=== PATIENT | female | born 1995 | race Caucasian/White ===

== ENCOUNTER 2018-05-29 05:47 | Inpatient (IN) | payer OTHER ==
[~2018-05-29] VITALS: Ht 170.2 cm; Wt 87.2 kg
[2018-05-29] MEDS ORDERED: OXYTOCIN 10 UNITS/ML VIAL IM ONE (05:48)
[2018-05-29] MEDS ORDERED: 0.9% SODIUM CHLORIDE 10 ML VIAL IVP ONE (05:48)
[2018-05-29] MEDS ORDERED: EPHEDrine SULFATE 50 MG/ML VIAL IM ONE (05:48)
[2018-05-29] MEDS ORDERED: RINGERS SOLUTION,LACTATED 1,000 ML IV ONE (05:48)
[2018-05-29] MEDS ORDERED: METOCLOPRAMIDE HCL 5 MG/ML 2 ML VIAL IVP ONE (06:00)
[2018-05-29] MEDS ORDERED: CITRIC ACID/SODIUM CITRATE 30 ML SOLUTION UDCUP PO ONE (06:00)
[2018-05-29] MEDS ORDERED: PREN1TAB80 PO (06:22)
[2018-05-29 06:23] LABS: BASOPHILS % (AUTO) 0.5 % (0.0-2.0); EOSINOPHILS % (AUTO) 0.5 % (1.0-6.0); HEMATOCRIT 40.1 % (36-46); HEMOGLOBIN 13.4 g/dL (12.0-16.0); LYMPHOCYTES % (AUTO) 15.8 % (22.0-44.0); MEAN CORPUSCULAR HGB CONC 33.3 G/dL (31.0-37.0); MEAN CORPUSCULAR VOLUME 96 fL (80-100); MONOCYTES # (AUTO) 0.8 K/uL (0.1-1.0); NEUTROPHILS # (AUTO) 9.9 K/uL (1.8-7.7); NEUTROPHILS % (AUTO) 77.2 % (40.0-70.0); PLATELET COUNT (AUTO) 191 K/uL (150-450); RED BLOOD CELL COUNT(AUTO) 4.18 MIL/uL (4.00-5.20); RED CELL DISTRIBUTION WIDTH 14.2 % (11.5-14.5)
[2018-05-29 06:31] VITALS: BP 115/71
[2018-05-29] MEDS ORDERED: FentaNYL CITRATE-PF 100 MCG/2 ML VIAL ONE (07:30)
[2018-05-29] MEDS ORDERED: BUPIVACAINE HCL/DEX-WATER/PF 0.75% 2 ML AMP ONE ×2 (07:30→07:32)
[2018-05-29] MEDS ORDERED: MORPHINE SULFATE/PF 0.5 MG/ML 10 ML AMP ONE (07:30)
[2018-05-29] MEDS ORDERED: ACETAMINOPHEN 1000 MG/ISO-OSM 100 ML IV ONE (07:30)
[2018-05-29] MEDS ORDERED: NALBUPHINE HCL 10 MG/ML VIAL IVP PRN ×3 (08:30)
[2018-05-29] MEDS ORDERED: DiphenhydrAMINE HCL 50 MG/ML VIAL IVP PRN ×2 (08:30)
[2018-05-29] MEDS ORDERED: ONDANSETRON HCL 4 MG/2 ML VIAL IVP PRN ×2 (08:30)
[2018-05-29] MEDS ORDERED: MORPHINE SULFATE 10 MG/ML SYRINGE IVP PRN (08:30)
[2018-05-29] MEDS ORDERED: FentaNYL CITRATE-PF 100 MCG/2 ML VIAL IVP PRN (08:30)
[2018-05-29] MEDS ORDERED: DEXAMETHASONE SOD PHOS 4 MG/ML VIAL IVP PRN (08:30)
[2018-05-29] MEDS ORDERED: NALOXONE HCL 0.4 MG/ML VIAL IVP PRN (08:30)
[2018-05-29] MEDS ORDERED: LANOLIN 7 GM OINTMENT TP PRN (09:00)
[2018-05-29] MEDS ORDERED: ACETAMINOPHEN/CODEINE 300-30 MG TABLET PO PRN ×2 (09:00)
[2018-05-29] MEDS ORDERED: METHYLERGONOVINE MALEATE 0.2 MG/ML VIAL ONE (09:56)
[2018-05-29] MEDS ORDERED: ONDANSETRON HCL 4 MG/2 ML VIAL ONE (10:13)
[2018-05-29] MEDS: DEXTROSE 5%-0.45% SODIUM CHL 1,000 ML IV SCH ×4 (10:45→23:41)
[2018-05-29] MEDS: ACETAMINOPHEN 1000 MG/ISO-OSM 100 ML IV SCH (16:40)
[2018-05-29] MEDS ORDERED: OXYGEN THERAPY IH SCH ×3 (20:00)
[2018-05-29] MEDS: MAGNESIUM HYDROXIDE SUSPENSION 30 ML UDCUP PO SCH (21:27)
[2018-05-30] MEDS: ACETAMINOPHEN 1000 MG/ISO-OSM 100 ML IV SCH (00:44)
[2018-05-30] MEDS: IBUPROFEN 800 MG TABLET PO SCH ×4 (02:08→21:08)
[2018-05-30 06:10] LABS: BASOPHILS % (AUTO) 0.3 % (0.0-2.0); EOSINOPHILS % (AUTO) 0.8 % (1.0-6.0); HEMATOCRIT 38.7 % (36-46); HEMOGLOBIN 12.9 g/dL (12.0-16.0); LYMPHOCYTES # (AUTO) 1.6 K/uL (1.0-4.8); LYMPHOCYTES % (AUTO) 12.3 % (22.0-44.0); MEAN CORPUSCULAR HEMOGLOBIN 32.3 pg (26.0-34.0); MEAN CORPUSCULAR HGB CONC 33.5 G/dL (31.0-37.0); MEAN CORPUSCULAR VOLUME 97 fL (80-100); MONOCYTES # (AUTO) 1.1 K/uL (0.1-1.0); MONOCYTES % (AUTO) 8.3 % (2.0-9.0); NEUTROPHILS # (AUTO) 10.3 K/uL (1.8-7.7); NEUTROPHILS % (AUTO) 78.3 % (40.0-70.0); PLATELET COUNT (AUTO)-OB 186 K/uL (150-450); RED CELL DISTRIBUTION WIDTH 14.3 % (11.5-14.5)
[2018-05-30] MEDS: MAGNESIUM HYDROXIDE SUSPENSION 30 ML UDCUP PO SCH ×2 (09:27→21:08)
[2018-05-31] MEDS: IBUPROFEN 800 MG TABLET PO SCH ×4 (03:41→21:50)
[2018-05-31] MEDS: MAGNESIUM HYDROXIDE SUSPENSION 30 ML UDCUP PO SCH (21:50)
[2018-06-01] MEDS ORDERED: IBUP-2071 PO (08:32)
== END 2018-06-01 11:25 | disposition home or self-care (01) | DRG 788 ==
LOC: 4S 05:47 → OBSVTOIN 05:47
PROVIDERS: ADMIT Obstetrics & Gynecology; ATTEND Obstetrics & Gynecology
PROC: 10D00Z1 Extraction of Products of Conception, Low, Open Approach (ICD-10-PCS; principal; 2018-05-29)
DX: O34.211 Maternal care for low transverse scar from previous cesarean delivery (principal); Z3A.40 40 weeks gestation of pregnancy; Z37.0 Single live birth
CPT/HCPCS: 86850; 86900; 86901; 86920; 87081; J0131; J0690; J2210; J2274; J2405; J2590; J2765; J3010; J3490